=== PATIENT | male | born 1990 | race Caucasian/White ===

== ENCOUNTER 2016-08-23 06:01 | Inpatient (IN) | payer BC ==
[~2016-08-23] VITALS: Ht 195.6 cm; Wt 231.1 kg
[2016-08-23] MEDS ORDERED: METF500T4 PO (06:51)
[2016-08-23 07:43] LABS: BLOOD UREA NITROGEN 6 mg/dL (7-18)
[2016-08-23 08:03] LABS: DIFF TOTAL CELLS COUNTED 100 CELL DIFF
[2016-08-23 08:06] LABS: VERIFY COUNTS? YES
[2016-08-23 08:08] LABS: LARGE PLATELETS 1+; POLYCHROMASIA 1+
[2016-08-23] MEDS ORDERED: ALBUTEROL/IPRATROPIUM 2.5MG/0.5MG, 3 ML ONE (08:21)
[2016-08-23] MEDS ORDERED: methylPREDNISolone SOD SUCC 125 MG/2 ML ONE (08:25)
[2016-08-23] MEDS ORDERED: methylPREDNISolone SOD SUCC 125 MG/2 ML IVP ONE (08:30)
[2016-08-23] MEDS ORDERED: ALBUTEROL/IPRATROPIUM 2.5MG/0.5MG, 3 ML NPPB ONE (08:30)
[2016-08-23] MEDS ORDERED: AZITHROMYCIN 500 MG in SODIUM CHLORIDE 0.9% 250 ML IVPB ONE (09:30)
[2016-08-23] MEDS ORDERED: SODIUM CHLORIDE 0.9% 1,000ML IVBOLUS ONE (09:30)
[2016-08-23] MEDS ORDERED: CEFTRIAXONE PMX 1GM/50ML 50 ML IVPB ONE (09:30)
[2016-08-23] MEDS ORDERED: CEFTRIAXONE PMX 1GM/50ML 50 ML ONE (09:57)
[2016-08-23 10:09] VITALS: BP 134/71
[2016-08-23] MEDS ORDERED: NS + 20MEQ KCL 1,000 ML IV SCH (10:29)
[2016-08-23] MEDS ORDERED: CEFTRIAXONE PMX 1GM/50ML 50 ML IV SCH (10:30)
[2016-08-23] MEDS ORDERED: ACETAMINOPHEN 325 MG TABLET PO PRN (10:30)
[2016-08-23] MEDS ORDERED: metFORMIN 500 MG TABLET PO SCH (10:30)
[2016-08-23] MEDS ORDERED: DOCUSATE 100 MG CAPSULE PO PRN (10:30)
[2016-08-23] MEDS ORDERED: GUAIFENESIN/DM 200-20MG, 10ML UDC PO PRN (10:30)
[2016-08-23] MEDS ORDERED: POLYETHYLENE GLYCOL 17 GM PACKET PO PRN (10:30)
[2016-08-23] MEDS ORDERED: HYDROcodone/APAP 5/325 TABLET PO PRN (10:30)
[2016-08-23] MEDS ORDERED: MORPHINE SULFATE 4 MG/ML, 1ML IVPush PRN (10:30)
[2016-08-23] MEDS ORDERED: ONDANSETRON 2MG/ML, 2ML IVP PRN (10:30)
[2016-08-23] MEDS ORDERED: HEPARIN 5,000 UNITS/ML, 1ML SQ SCH (10:30)
[2016-08-23] MEDS ORDERED: AZITHROMYCIN 500 MG in SODIUM CHLORIDE 0.9% 250 ML IV SCH (10:30)
[2016-08-23] MEDS ORDERED: INSULIN REGULAR 100 UNITS/ML, 3ML VIAL SQ-INSULIN SCH (11:00)
[2016-08-24] MEDS ORDERED: CEFTRIAXONE PMX 1GM/50ML 50 ML IV SCH (10:00)
[2016-08-24] MEDS ORDERED: AZITHROMYCIN 500 MG in SODIUM CHLORIDE 0.9% 250 ML IV SCH (10:00)
== END 2016-08-23 15:09 | disposition left against medical advice (07) | DRG 194 ==
LOC: ED 08:48 → EDIP 09:36
PROVIDERS: ADMIT Internal Medicine; ATTEND Family Medicine
DX: J18.1 Lobar pneumonia, unspecified organism (principal); Z68.44 Body mass index [BMI] 60.0-69.9, adult; E11.9 Type 2 diabetes mellitus without complications; Z80.1 Family history of malignant neoplasm of trachea, bronchus and lung; Z83.3 Family history of diabetes mellitus; Z82.49 Family history of ischemic heart disease and other diseases of the circulatory system; E66.01 Morbid (severe) obesity due to excess calories; R09.02 Hypoxemia; J98.01 Acute bronchospasm
CPT/HCPCS: 36415; 71020; 80048; 82040; 83605; 85025; 85379; 87040; 93005; 94640; 96374; 96375; J0456; J0696; J7620; J2930; J7030; J7050

== ENCOUNTER 2016-08-23 12:22 | Emergency (ER) | payer BC ==
[~2016-08-23] VITALS: Ht 195.6 cm; Wt 230.1 kg
[2016-08-23 12:22] VITALS: BP 153/85
[~2016-08-23 12:22] MED LIST: METF500T4 PO
[2016-08-23] MEDS ORDERED: ALBUTEROL/IPRATROPIUM 2.5MG/0.5MG, 3 ML NPPB ONE (13:00)
[2016-08-23] MEDS ORDERED: ALBUTEROL/IPRATROPIUM 2.5MG/0.5MG, 3 ML ONE (14:05)
== END 2016-08-23 14:32 | disposition home or self-care (01) ==
LOC: ED 14:25
DX: J45.909 Unspecified asthma, uncomplicated (principal); J18.1 Lobar pneumonia, unspecified organism
CPT/HCPCS: 93005; 99283; J7620